=== PATIENT | female | born 2000 | race Caucasian/White ===

== ENCOUNTER 2018-08-21 18:36 | Emergency (ER) | payer OTHER ==
[~2018-08-21] VITALS: Ht 170.2 cm; Wt 74.8 kg
[~2018-08-21 18:36] MED LIST: ALBU90OI INH; AMOX50SU PO; CEPH250SUA PO; CLIN15SU PO; CODGUAEL PO; IBUP200 PO; MEBE100 PO; RXCODGUASY PO
[2018-08-21] MEDS ORDERED: KETO10 PO (19:17)
== END 2018-08-21 19:20 | disposition home or self-care (01) ==
LOC: ER 18:36
DX: M70.841 Other soft tissue disorders related to use, overuse and pressure, right hand (principal)
CPT/HCPCS: 99283

== ENCOUNTER → 2020-02-12 | Outpatient (CLI) | payer OTHER ==
[~2020-02-12] MED LIST changes: +Cipro500 MG PO; +ESCI10 PO; +KETO10 PO
== END | disposition home or self-care (01) ==
LOC: LAB SHORT 14:18 → LAB 14:18
PROVIDERS: Obstetrics & Gynecology
DX: Z01.419 Encounter for gynecological examination (general) (routine) without abnormal findings (principal)
CPT/HCPCS: G0123

== ENCOUNTER → 2020-05-30 | Outpatient (CLI) | payer OTHER ==
[2020-06-02 02:11] LABS: CHLAMYDIA TRACHOMATIS, NAA Negative (Negative)
== END | disposition home or self-care (01) ==
LOC: LAB EV 13:55
PROVIDERS: Obstetrics & Gynecology
DX: Z11.3 Encounter for screening for infections with a predominantly sexual mode of transmission (principal)
CPT/HCPCS: 87491; 87591

== ENCOUNTER → 2020-06-19 | Outpatient (CLI) | payer OTHER ==
[2020-06-19 13:50] LABS: BASOPHILS ABSOLUTE AUTO 0.06 K/mm3 (0.00-0.23); BASOPHILS PERCENT AUTO 1 % (0-2); EOSINOPHILS ABSOLUTE AUTO 0.12 K/mm3 (0.00-0.68); EOSINOPHILS PERCENT AUTO 2 % (0-6); Hematocrit 36.6 % (33.0-51.0); Hemoglobin 12.2 g/dL (11.5-16.0); IMMATURE GRAN ABSOLUTE AUTO 0.03 K/mm3 (0.00-0.10); IMMATURE GRAN PERCENT AUTO 0 % (0-1); LYMPHOCYTES ABSOLUTE AUTO 1.98 K/mm3 (0.84-5.20); LYMPHOCYTES PERCENT AUTO 30 % (21-46); MONOCYTES ABSOLUTE AUTO 0.35 K/mm3 (0.16-1.47); MONOCYTES PERCENT AUTO 5 % (4-13); Mean Corpuscular HGB 29.2 pg (26.0-34.0); Mean Corpuscular HGB Conc 33.3 g/dL (31.5-36.5); Mean Corpuscular Volume 88 fL (80-100); Mean Platelet Volume 9.2 fL (9.1-12.4); NEUTROPHILS ABSOLUTE AUTO 4.14 K/mm3 (1.96-9.15); NEUTROPHILS PERCENT AUTO 62 % (41-73); Platelet Count 343 K/mm3 (150-400); RDW Coefficient Variation 12.5 % (11.7-14.2); Red Blood Cell Count 4.18 M/mm3 (3.80-5.20); White Blood Cell Count 6.68 K/mm3 (4.00-11.30)
[2020-06-19 14:08] LABS: Alanine Aminotransfer (ALT/SGP 25 U/L (12-78); Albumin, Blood 3.3 g/dL (3.4-5.0); Albumin/Globulin Ratio 0.9 (0.8-1.8); Alk Phos 53 U/L (40-126); Anion Gap 11 mmol/L (6-16); Aspartate Aminotrans (AST/SGOT 17 U/L (12-37); Bilirubin, Total 0.4 mg/dL (0.1-1.0); Blood Urea Nitrogen 8 mg/dL (8-24); Bun/Creatinine Ratio 13.8 (12.0-20.0); CO2, Blood 24 mmol/L (21-32); Calcium, Blood 8.6 mg/dL (8.5-10.1); Chloride, Blood 105 mmol/L (98-108); Creatinine, Blood 0.58 mg/dL (0.40-1.00); Globulin, Blood 3.8 g/dL (2.2-4.0); Glomerular Filtration Rate >60 (60-); Glucose, Blood 80 mg/dL (70-99); Potassium, Blood 3.7 mmol/L (3.5-5.5); Sodium, Blood 140 mmol/L (136-145); Thyroid Stimulating Hormone 2.257 uIU/mL (0.360-4.800); Total Protein, Blood 7.1 g/dL (6.4-8.2)
== END | disposition home or self-care (01) ==
LOC: LAB SHORT 13:40
PROVIDERS: Physician Assistant Medical
DX: R55 Syncope and collapse (principal)
CPT/HCPCS: 80053; 84443; 85025

== ENCOUNTER → 2022-11-12 | Outpatient (CLI) | payer OTHER | END | disposition home or self-care (01) | LOC: LAB SHORT 16:36 → LAB 16:36 | PROVIDERS: Family Medicine | DX: Z01.419 Encounter for gynecological examination (general) (routine) without abnormal findings (principal) | CPT/HCPCS: G0145 ==

== ENCOUNTER 2024-02-11 23:27 | Emergency (ER) | payer OTHER ==
[~2024-02-11] VITALS: Ht 167.6 cm; Wt 77.1 kg
[2024-02-11 23:32] VITALS: BP 129/76
[2024-02-11] MEDS ORDERED: FOLI1 PO (23:37)
[2024-02-11] MEDS ORDERED: PRENATAL TABLE1 EAC2 PO (23:38)
[2024-02-11 23:59] LABS: BASOPHILS ABSOLUTE AUTO 0.05 K/mm3 (0.00-0.23); BASOPHILS PERCENT AUTO 1 % (0-2); EOSINOPHILS ABSOLUTE AUTO 0.31 K/mm3 (0.00-0.68); EOSINOPHILS PERCENT AUTO 3 % (0-6); Hematocrit 35.7 % (33.0-51.0); Hemoglobin 11.8 g/dL (11.5-16.0); IMMATURE GRAN ABSOLUTE AUTO 0.02 K/mm3 (0.00-0.10); IMMATURE GRAN PERCENT AUTO 0 % (0-1); LYMPHOCYTES PERCENT AUTO 35 % (21-46); MONOCYTES ABSOLUTE AUTO 0.63 K/mm3 (0.16-1.47); MONOCYTES PERCENT AUTO 7 % (4-13); Mean Corpuscular HGB 28.7 pg (26.0-34.0); Mean Corpuscular HGB Conc 33.1 g/dL (31.5-36.5); Mean Corpuscular Volume 87 fL (80-100); NEUTROPHILS ABSOLUTE AUTO 5.05 K/mm3 (1.96-9.15); NEUTROPHILS PERCENT AUTO 55 % (41-73); Platelet Count 325 K/mm3 (150-400); RDW Coefficient Variation 13.6 % (11.7-14.2); RDW Standard Deviation 43.2 fL (35.1-46.3); Red Blood Cell Count 4.11 M/mm3 (3.80-5.20); White Blood Cell Count 9.26 K/mm3 (4.00-11.30)
[2024-02-12 00:34] LABS: Albumin, Blood 3.4 g/dL (3.4-5.0); Bilirubin, Total 0.2 mg/dL (0.1-1.0); Bun/Creatinine Ratio 10.8 (12.0-20.0); Calcium, Blood 8.6 mg/dL (8.5-10.1); Creatinine, Blood 0.65 mg/dL (0.40-1.00); Globulin, Blood 3.4 g/dL (2.2-4.0); Potassium, Blood 3.7 mmol/L (3.5-5.5); Total Protein, Blood 6.8 g/dL (6.4-8.2)
[2024-02-12] MEDS ORDERED: Rho(D) Immune Globulin 300 MCG / SYR XX ONE (05:15)
[2024-02-12 06:13] LABS: Appearance, Urine Clear (Clear); Color, Urine Yellow (P-Yellow); Glucose Qualitative, Urine Neg (Neg); Ketones, Urine Neg (Neg); Leukocyte Esterase, Urine Neg (Neg); Nitrite, Urine Neg (Neg); Protein, Urine Neg (Neg); Source, Urine Clean Catch; pH, Urine 6.5 (5.0-8.0)
[2024-02-12 06:14] LABS: Bilirubin, Urine Neg (Neg); Blood, Urine 5+ (Neg); Red Blood Cells, Urine 0-2 /hpf (0-2); Urobilinogen, Urine 1+ (Normal); White Blood Cells, Urine 0-2 /hpf (0-5)
[2024-02-12 06:15] LABS: Bacteria Few /hpf; Squamous Epithelial Cells Few /hpf (Few)
== END 2024-02-12 02:09 | disposition home or self-care (01) ==
LOC: ER 23:27
PROVIDERS: Emergency Medicine
DX: O20.9 Hemorrhage in early pregnancy, unspecified (principal); Z3A.08 8 weeks gestation of pregnancy
CPT/HCPCS: 76801; 76817; 80053; 81001; 84702; 85025; 86900; 86901; 96372; 99284-25; J2791

== ENCOUNTER → 2024-08-25 | Outpatient (CLI) | payer OTHER ==
[~2024-08-25] MED LIST changes: +FOLI1 PO; +PRENATAL TABLE1 EAC2 PO
== END ==
LOC: LAB 16:48 → LAB SHORT 16:48
DX: O09.93 Supervision of high risk pregnancy, unspecified, third trimester (principal)
CPT/HCPCS: 87081; 87150

== ENCOUNTER 2024-09-22 18:16 | Inpatient (IN) | payer OTHER ==
[~2024-09-22] VITALS: Ht 167.6 cm; Wt 102.0 kg
[~2024-09-22 18:16] MED LIST changes: +EPINEPhrine HCl 0.1 MG/ML 10ML SYR XX ONE; +Propofol 10mg/ml 20 ml Vial (Procedural) IV ONE; +SuccINYLCHOLINE Chloride 100 MG/5 ML 5MLSYR IV ONE
[2024-09-22 18:22] VITALS: BP 152/82
[2024-09-22 18:39] VITALS: BP 146/94
[2024-09-22 19:16] VITALS: BP 128/61
[2024-09-22 19:35] LABS: BASOPHILS ABSOLUTE AUTO 0.04 K/mm3 (0.00-0.23); BASOPHILS PERCENT AUTO 0 % (0-2); EOSINOPHILS ABSOLUTE AUTO 0.14 K/mm3 (0.00-0.68); EOSINOPHILS PERCENT AUTO 1 % (0-6); Hematocrit 36.1 % (33.0-51.0); Hemoglobin 12.1 g/dL (11.5-16.0); IMMATURE GRAN ABSOLUTE AUTO 0.06 K/mm3 (0.00-0.10); IMMATURE GRAN PERCENT AUTO 1 % (0-1); LYMPHOCYTES PERCENT AUTO 19 % (21-46); MONOCYTES ABSOLUTE AUTO 0.73 K/mm3 (0.16-1.47); MONOCYTES PERCENT AUTO 6 % (4-13); Mean Corpuscular HGB 29.5 pg (26.0-34.0); Mean Corpuscular HGB Conc 33.5 g/dL (31.5-36.5); Mean Corpuscular Volume 88 fL (80-100); NEUTROPHILS ABSOLUTE AUTO 8.72 K/mm3 (1.96-9.15); NEUTROPHILS PERCENT AUTO 73 % (41-73); Platelet Count 266 K/mm3 (150-400); RDW Coefficient Variation 13.7 % (11.7-14.2); RDW Standard Deviation 44.2 fL (35.1-46.3); White Blood Cell Count 11.99 K/mm3 (4.00-11.30)
[2024-09-22] MEDS ORDERED: Lactated Ringer's 1,000 ML IV ONE (19:35)
[2024-09-22 19:48] VITALS: BP 134/71
[2024-09-22] MEDS ORDERED: Carboprost Tromethamine 250 MCG/ML 1ML Amp IM ONE (20:21)
[2024-09-22] MEDS ORDERED: Methylergonovine Maleate 0.2MG / ML 1ML Amp XX ONE (20:21)
[2024-09-22] MEDS ORDERED: Misoprostol 200 MCG Tab PO ONE (20:21)
[2024-09-22] MEDS ORDERED: Morphine Sulfate 10 MG/ML 1MLSYR IM ONE (21:05)
[2024-09-22] MEDS ORDERED: Promethazine HCl 25 MG Tab PO ONE (21:05)
[2024-09-23] VITALS (42 sets, daily range): BP systolic 118–159; BP diastolic 63–105
[2024-09-23] MEDS ORDERED: LEVSOD75 PO (05:39)
[2024-09-23] MEDS ORDERED: Ondansetron HCl 2 MG / ML 2ML Vial IV PRN ×3 (05:45→20:20)
[2024-09-23] MEDS ORDERED: OXYTOCIN/RINGER'S LACTATE 500 ML IV PRN (05:45)
[2024-09-23] MEDS ORDERED: ePHEDrine Sulfate 50 MG/ML 1ML Injection XX PRN (05:45)
[2024-09-23] MEDS ORDERED: Tranexamic Acid 1,000 MG in NS 100 ML IV SCH (05:45)
[2024-09-23] MEDS ORDERED: Lactated Ringer's 1,000 ML IV PRN ×3 (05:45→05:50)
[2024-09-23] MEDS ORDERED: Misoprostol 200 MCG Tab PR PRN ×2 (05:45→20:25)
[2024-09-23] MEDS ORDERED: Misoprostol 200 MCG Tab BC PRN (05:45)
[2024-09-23] MEDS ORDERED: Oxytocin 10 Unit / ML Vial IM PRN (05:45)
[2024-09-23] MEDS ORDERED: FentaNYL 2mcg/ml-Bup 0.1% Epd 250 ML EPI PRN (05:45)
[2024-09-23] MEDS ORDERED: Acetaminophen 500 MG Tab PO PRN ×2 (05:45→20:20)
[2024-09-23] MEDS ORDERED: Carboprost Tromethamine 250 MCG/ML 1ML Amp IM PRN ×2 (05:45→20:20)
[2024-09-23] MEDS ORDERED: Methylergonovine Maleate 0.2MG / ML 1ML Amp IM PRN ×2 (05:45→20:25)
[2024-09-23] MEDS ORDERED: FentaNYL Citrate 50 MCG/ML 2 ML Injection IV PRN ×3 (05:50→20:05)
[2024-09-23] MEDS ORDERED: Calcium Carbonate 500 MG Tab Chew PO PRN (05:50)
[2024-09-23] MEDS ORDERED: Penicillin G Potassium 5,000,000 UNITS in NS 250 ML IV ONE (06:00)
[2024-09-23] MEDS ORDERED: Penicillin G Potassium 2,500,000 UNITS in Dextrose 5% 100 ML IV SCH (10:15)
[2024-09-23] MEDS ORDERED: Lactated Ringer's 1,000 ML IV SCH (14:20)
[2024-09-23] MEDS ORDERED: OXYTOCIN/RINGER'S LACTATE 500 ML IV SCH ×2 (14:20→20:30)
[2024-09-23] MEDS ORDERED: ePHEDrine Sulfate 50 MG/ML 1ML Injection IV PRN (16:05)
[2024-09-23] MEDS ORDERED: Naloxone HCl 0.4MG / ML 1ML Vial IV PRN (16:05)
[2024-09-23] MEDS ORDERED: FentaNYL Cit 2 MCG/ML, 0.1% Bupiv/NS 250ML Epidural EPI PRN (16:10)
[2024-09-23] MEDS ORDERED: CeFAZolin Sodium 2,000 MG in NS 100 ML IV SCH (18:25)
[2024-09-23] MEDS ORDERED: Azithromycin 500 MG in NS 250 ML IV SCH (18:25)
[2024-09-23] MEDS ORDERED: Metoclopramide HCl 5MG / ML 2ML Vial ONE (18:38)
[2024-09-23] MEDS ORDERED: Citric Acid/Sodium Citrate 30 ML BTL ONE (18:39)
[2024-09-23] MEDS ORDERED: Metoclopramide HCl 5MG / ML 2ML Vial IV ONE (18:40)
[2024-09-23] MEDS ORDERED: Citric Acid/Sodium Citrate 30 ML BTL PO ONE (18:40)
[2024-09-23] MEDS ORDERED: Tranexamic Acid 100 ML IV ONE (18:47)
[2024-09-23] MEDS ORDERED: FentaNYL Citrate 50 MCG/ML 2 ML Injection ONE ×2 (19:08→20:01)
[2024-09-23] MEDS ORDERED: Carboprost Tromethamine 250 MCG/ML 1ML Amp IM SCH (19:15)
[2024-09-23] MEDS ORDERED: Methylergonovine Maleate 0.2MG / ML 1ML Amp IM SCH (19:15)
--- NOTE | 2024-09-23 19:15 | NUR ---
RESUSCITATION ATTEMPT: DISPITED THE CONFIRMATION OF NO CARDIAC ACTIVITY VIA US. THE PATIENT AND FAMILY REQUESTED ALL LIFE SAVING MEASURES BE DONE. RESUSCITACTION ATTEMPT FOLLOWS: AT 1902. NO HEART RATE AT DELIVERY. NB WAS PROMT[facility] AVILA WERE WAITING TO RECEIVE. PPV DONE FOR 30SECONDS. NB INTUBATED AT 190, BILATERAL LUNG SOUNDS. CHEST COMPRESSION STARTED AFTER 30 SECOND OF VENTALATION VIA ET TUBE. IO TO RT WOO PLACED AT 190- 2CC OF EPI GIVEN VIA THIS IO. EXTAVASATION NOTED WITH FLUSH. CONTINUING TO WORK FOR UV ACCESS. SECOND IO PLACED IN LEFT WOO AT 190 AND 1CC EPI GIVEN, AGAIN EXTAVASTION NOTED WITH FLUSH. 1913 UV LINE SUCCESSFULLY PLACED AND 1CC EPI GIVEN FOLLOWED BY 3CC FLUSH. NO HEART RATE AT 13 MINUTES AFTER DELIVERY AND TIME OF CALLED AT 191.
[2024-09-23] MEDS ORDERED: Oxytocin 10 Unit / ML Vial ONE (19:20)
[2024-09-23] MEDS ORDERED: Dexamethasone Sod Phos 10 MG/ML 1ML VIAL ONE (19:25)
[2024-09-23] MEDS ORDERED: Ondansetron HCl 2 MG / ML 2ML Vial ONE (19:25)
--- NOTE | 2024-09-23 19:35 | NUR ---
09/23/241934 [facility]ARE[facility] SECTION. FOR ABSENT HEART TONES. FEMALE DELIVERED AT 190. APGARS 0/0. 13 MINUTE FULL RESUSCITATION DONE BY DR. AUSTIN DOMINGUEZ, SANCHEZ FINNEY, KAITLYNN., MARIEL AMAYA, RN, JAMEE SPENCER, RN, ROBE HERNANDEZ, RN, DEVANG, RN. RENO CORDOBA, RT. TIME OF FOR WAS CALLED AT 191. PT RECEIVED IM METHERGINE, IM HEMABATE, AND TXA IN OR DURING CASE.
[2024-09-23 19:42] LABS: PCO2 Cord - Arterial 84.4 mmHg (40-50); pH Cord - Arterial 6.88 (7.28-7.35)
[2024-09-23 19:43] LABS: PCO2 Cord - Venous 42.9 mmHg (40-50); PO2 Cord - Venous 51.4 mmHg (28-32); pH Umbilical Cord - Venous 7.04 (7.26-7.35)
[2024-09-23] MEDS ORDERED: FentaNYL Citrate 50 MCG/ML 2 ML Injection IV ONE (20:05)
[2024-09-23] MEDS ORDERED: HYDROmorphone HCl/Pf 1MG SYR IV PRN (20:05)
[2024-09-23] MEDS ORDERED: Ketorolac Tromethamine 15mg Vial IV PRN (20:10)
[2024-09-23] MEDS ORDERED: OxyCODONE HCL 5 MG TAB PO PRN (20:15)
[2024-09-23] MEDS ORDERED: DiphenhydrAMINE HCL 25 MG Cap PO PRN (20:15)
[2024-09-23] MEDS ORDERED: Polyethylene Glycol 3350 17 gm PO PRN (20:20)
[2024-09-23] MEDS ORDERED: Promethazine HCl 25 MG Tab PO PRN (20:20)
[2024-09-23] MEDS ORDERED: Magnesium Hydroxide Conc 10 ML UDC PO PRN (20:25)
[2024-09-23] MEDS ORDERED: Simethicone 80 MG Chew PO PRN (20:25)
[2024-09-23] MEDS ORDERED: Rho(D) Immune Globulin 300 MCG / SYR IM ONE (20:25)
[2024-09-23] MEDS ORDERED: HYDROmorphone 1 MG/ML 30 ML Bag IV PRN (20:30)
[2024-09-23] MEDS ORDERED: Metoclopramide HCl 10 MG Tab PO PRN (20:40)
[2024-09-23] MEDS ORDERED: Ketorolac Tromethamine 30mg Vial IV SCH (21:00)
[2024-09-23] MEDS ORDERED: Docusate Sodium 100 MG Cap PO SCH (21:00)
[2024-09-23 21:16] LABS: Hematocrit 32.5 % (33.0-51.0); Hemoglobin 10.9 g/dL (11.5-16.0); Mean Corpuscular HGB 29.7 pg (26.0-34.0); Mean Corpuscular HGB Conc 33.5 g/dL (31.5-36.5); Mean Corpuscular Volume 89 fL (80-100); Mean Platelet Volume 8.9 fL (9.1-12.4); Platelet Count 271 K/mm3 (150-400); RDW Standard Deviation 45.4 fL (35.1-46.3); Red Blood Cell Count 3.67 M/mm3 (3.80-5.20); White Blood Cell Count 13.94 K/mm3 (4.00-11.30)
[2024-09-23 22:02] LABS: Prothrombin Time Results 10.7 Sec (9.7-11.5)
[2024-09-23 22:20] LABS: Hematocrit 31.7 % (33.0-51.0); Hemoglobin 10.6 g/dL (11.5-16.0); Mean Corpuscular HGB Conc 33.4 g/dL (31.5-36.5); Mean Corpuscular Volume 87 fL (80-100); Mean Platelet Volume 8.9 fL (9.1-12.4); Platelet Count 274 K/mm3 (150-400); RDW Coefficient Variation 13.9 % (11.7-14.2); RDW Standard Deviation 43.5 fL (35.1-46.3); Red Blood Cell Count 3.66 M/mm3 (3.80-5.20); White Blood Cell Count 16.82 K/mm3 (4.00-11.30)
[2024-09-23 22:38] LABS: International Normalized Ratio 0.99; Prothrombin Time Results 10.6 Sec (9.7-11.5)
[2024-09-23 22:55] LABS: BAND PERCENT MAN 26 % (0-8); BASOPHILS PERCENT MAN 0 % (0-2); EOSINOPHILS PERCENT MAN 0 % (0-6); LYMPHOCYTES PERCENT MAN 6 % (21-46); MONOCYTES PERCENT MAN 3 % (4-13); SEG NEUTROPHILS PERCENT MAN 65 % (41-73); TOTAL CELLS COUNTED 100
[2024-09-24] VITALS (23 sets, daily range): BP systolic 106–154; BP diastolic 54–91
[2024-09-24] MEDS ORDERED: NS IV ONE (03:15)
[2024-09-24] MEDS ORDERED: GENTAMICIN SULFATE IV ONE (03:15)
[2024-09-24] MEDS ORDERED: Clindamycin 900mg in D5W 50ML 50 ML IV SCH (03:15)
[2024-09-24 03:42] LABS: Hematocrit 27.5 % (33.0-51.0); Hemoglobin 9.3 g/dL (11.5-16.0); Mean Corpuscular HGB 29.8 pg (26.0-34.0); Mean Corpuscular HGB Conc 33.8 g/dL (31.5-36.5); Mean Corpuscular Volume 88 fL (80-100); Mean Platelet Volume 9.3 fL (9.1-12.4); Platelet Count 271 K/mm3 (150-400); RDW Standard Deviation 44.8 fL (35.1-46.3); Red Blood Cell Count 3.12 M/mm3 (3.80-5.20); White Blood Cell Count 18.31 K/mm3 (4.00-11.30)
[2024-09-24 03:52] LABS: International Normalized Ratio 1.02; Prothrombin Time Results 10.9 Sec (9.7-11.5)
[2024-09-24 03:56] LABS: BAND PERCENT MAN 23 % (0-8); BASOPHILS PERCENT MAN 0 % (0-2); EOSINOPHILS PERCENT MAN 0 % (0-6); LYMPHOCYTES ABSOLUTE MAN 2.56 K/mm3 (0.84-5.20); LYMPHOCYTES PERCENT MAN 14 % (21-46); MONOCYTES ABSOLUTE MAN 1.09 K/mm3 (0.16-1.47); MONOCYTES PERCENT MAN 6 % (4-13); NEUTROPHILS ABSOLUTE MAN 14.64 K/mm3 (1.96-9.15); SEG NEUTROPHILS PERCENT MAN 57 % (41-73); TOTAL CELLS COUNTED 100
[2024-09-24] MEDS ORDERED: Levothyroxine Sodium 0.075 MG Tab PO SCH (06:00)
[2024-09-24] MEDS ORDERED: Citalopram Hydrobromide 20 MG Tab PO SCH (09:00)
[2024-09-24] MEDS ORDERED: Prenatal Vit/FE Fumarate/FA 1 Tab PO SCH ×2 (09:00)
[2024-09-24] MEDS ORDERED: Folic Acid 1 MG TAB PO SCH (09:00)
[2024-09-24] MEDS ORDERED: Rho(D) Immune Globulin 300 MCG / SYR IM SCH (10:20)
--- NOTE | 2024-09-24 11:44 | NUR ---
SENIOR STOCK PLAN ADMINISTRATOR D/C AND BIOX REMOVED WASTE 18CC OF DILAUDID WITH ELISA CALDERÓN
--- NOTE | 2024-09-24 13:34 | NUR ---
PATIENT REFUSED SPIRITUAL CARE AT THIS TIME, [facility] HAS BEEN TALKED TO BY FAMILY. PLAN TO DO AUTOPSY THEN BABY TO [facility]
--- NOTE | 2024-09-24 17:24 | NUR ---
UP TO BATHROOM, VOIDED
[2024-09-24] MEDS ORDERED: Ibuprofen 400 MG Tab PO SCH (18:00)
[2024-09-24 20:39] LABS: Hematocrit 26.7 % (33.0-51.0); Hemoglobin 8.7 g/dL (11.5-16.0); Mean Corpuscular HGB 29.3 pg (26.0-34.0); Mean Corpuscular HGB Conc 32.6 g/dL (31.5-36.5); Mean Corpuscular Volume 90 fL (80-100); Mean Platelet Volume 8.9 fL (9.1-12.4); Platelet Count 269 K/mm3 (150-400); RDW Coefficient Variation 13.9 % (11.7-14.2); RDW Standard Deviation 45.9 fL (35.1-46.3); Red Blood Cell Count 2.97 M/mm3 (3.80-5.20); White Blood Cell Count 14.26 K/mm3 (4.00-11.30)
[2024-09-24] MEDS ORDERED: Zolpidem Tartrate 10 MG Tab PO PRN (20:45)
[2024-09-24 20:52] LABS: International Normalized Ratio 0.97; Prothrombin Time Results 10.4 Sec (9.7-11.5)
[2024-09-24 21:27] LABS: BAND PERCENT MAN 23 % (0-8); BASOPHILS PERCENT MAN 0 % (0-2); EOSINOPHILS ABSOLUTE MAN 0.14 K/mm3 (0.00-0.68); EOSINOPHILS PERCENT MAN 1 % (0-6); LYMPHOCYTES ABSOLUTE MAN 2.13 K/mm3 (0.84-5.20); LYMPHOCYTES PERCENT MAN 15 % (21-46); MONOCYTES ABSOLUTE MAN 0.42 K/mm3 (0.16-1.47); MONOCYTES PERCENT MAN 3 % (4-13); NEUTROPHILS ABSOLUTE MAN 11.55 K/mm3 (1.96-9.15); SEG NEUTROPHILS PERCENT MAN 58 % (41-73); TOTAL CELLS COUNTED 100
[2024-09-25 04:50] VITALS: BP 134/81
--- NOTE | 2024-09-25 06:01 | NUR ---
SHIFT SUMMARY: PT AND SIGNIFICANT OTHER KEPT BABY AT BEDSIDE UNTILL ABOUT MIDNIGHT WHEN THEY REQUESTED THAT BABY GO TO PATHOLOGY. BABY WAS TAKEN TO PATHO BY THIS RN WITH AUTOPSY CONSENT AND REPORT. SOME PERSONAL BELONGINGS ALSO SENT WITH BABY. BLANKET, OUTFIT, A FLOWER AND A TOY TO GO WITH BABY TO THE HOME. MOTHER HAS HAD A COUPLE EPISODES OF VOMITTING THAT WAS RELIEVED BY [facility]AN. PT HAS BEEN AMBULATING IN ROOM AND IS NOW PASSING GAS. VOIDING WITHOUT DIFFICULTY.
--- NOTE | 2024-09-25 07:44 | NUR ---
pt has some nausea, gets the nausea after taking roxicodone, will talk to dr javier when she makes rounds this morning about trying a differnt pain medication, pt would like to go home today if the nausea gets better.
--- NOTE | 2024-09-25 08:44 | NUR ---
pt sleeping, have morning meds ready to give and do assessment, will let pt sleep a little longer.
--- NOTE | 2024-09-25 09:00 | NUR ---
dr romero at bedside for morning rounds, discussing pain meds with pt, to switch to hydrocodone, to give clindamycin and gentamycin, and possible dc home if nausea better today
[2024-09-25] MEDS ORDERED: GENTAMICIN SULFATE IV ONE (09:05)
[2024-09-25] MEDS ORDERED: NS IV ONE (09:05)
[2024-09-25] MEDS ORDERED: HYDROcodone 5-APAP 325 TAB PO PRN (09:15)
[2024-09-25 09:40] LABS: BASOPHILS ABSOLUTE AUTO 0.07 K/mm3 (0.00-0.23); BASOPHILS PERCENT AUTO 0 % (0-2); Hematocrit 26.5 % (33.0-51.0); Hemoglobin 9.2 g/dL (11.5-16.0); LYMPHOCYTES ABSOLUTE AUTO 2.36 K/mm3 (0.84-5.20); LYMPHOCYTES PERCENT AUTO 13 % (21-46); MONOCYTES PERCENT AUTO 4 % (4-13); Mean Corpuscular HGB 30.5 pg (26.0-34.0); Mean Corpuscular HGB Conc 34.7 g/dL (31.5-36.5); Mean Corpuscular Volume 88 fL (80-100); Mean Platelet Volume 8.9 fL (9.1-12.4); Platelet Count 302 K/mm3 (150-400); RDW Standard Deviation 44.8 fL (35.1-46.3); Red Blood Cell Count 3.02 M/mm3 (3.80-5.20); White Blood Cell Count 18.06 K/mm3 (4.00-11.30)
[2024-09-25 09:45] VITALS: BP 141/85
[2024-09-25 09:45] LABS: EOSINOPHILS ABSOLUTE AUTO 0.07 K/mm3 (0.00-0.68); EOSINOPHILS PERCENT AUTO 0 % (0-6); IMMATURE GRAN ABSOLUTE AUTO 0.29 K/mm3 (0.00-0.10); IMMATURE GRAN PERCENT AUTO 2 % (0-1); NEUTROPHILS ABSOLUTE AUTO 14.47 K/mm3 (1.96-9.15); NEUTROPHILS PERCENT AUTO 80 % (41-73)
[2024-09-25 10:12] LABS: BAND PERCENT MAN 3 % (0-8); BASOPHILS ABSOLUTE MAN 0.18 K/mm3 (0.00-0.23); BASOPHILS PERCENT MAN 1 % (0-2); EOSINOPHILS ABSOLUTE MAN 0.18 K/mm3 (0.00-0.68); EOSINOPHILS PERCENT MAN 1 % (0-6); LYMPHOCYTES ABSOLUTE MAN 1.62 K/mm3 (0.84-5.20); LYMPHOCYTES PERCENT MAN 9 % (21-46); MONOCYTES ABSOLUTE MAN 1.08 K/mm3 (0.16-1.47); MONOCYTES PERCENT MAN 6 % (4-13); NEUTROPHILS ABSOLUTE MAN 14.98 K/mm3 (1.96-9.15); SEG NEUTROPHILS PERCENT MAN 80 % (41-73); TOTAL CELLS COUNTED 100
--- NOTE | 2024-09-25 10:38 | NUR ---
pt feels the hydrocodone is better than the roxicodone for nausea, would still like to go home today. gentamicin is running in now. cbc results are back, pt reports the hydrocodone is making her a little sleepy
--- NOTE | 2024-09-25 11:03 | NUR ---
ELISA FROM [facility] IN TO SEE PT, TO CLEAR PT FOR GOING HOME, PPD SCORE HASNT BEEN DONE, EXPECTING IT TO BE HIGH. PT STILL WANTS TO GO HOME, NAUSEA IS BETTER WITH THE HYDROCODONE.
--- NOTE | 2024-09-25 11:50 | NUR ---
pt walk in grey outside administration to avoid any contact with people or babies.
--- NOTE | 2024-09-25 13:00 | NUR ---
dr romero called for update, sending new medications to pharamcy of pt choice with that is listed with [facility] and ok to go home after last antibotic pt wants to go home, less nausea with the hydrocodone, pt just feels sleepy. pt doesnt talk about baby or experience, but does focus on her surgery pain and nausea. social service talked to patient and
--- NOTE | 2024-09-25 13:50 | NUR ---
rn up to pathology to get baby blanket and cloths from baby for parents per their request, to leave flower and baby doll with baby to go to [place]. chelly made arrangement with [place] for the parents and parents agree with going to [place].
[2024-09-25] MEDS ORDERED: HYDROCODONE-AC1 EA19 PO (14:13)
[2024-09-25] MEDS ORDERED: IBUP800 PO (14:13)
[2024-09-25] MEDS ORDERED: METO10 PO (14:14)
[2024-09-25] MEDS ORDERED: ONDA4ODT MM (14:14)
--- NOTE | 2024-09-25 14:59 | NUR ---
DC INSTRUCTIONS GONE OVER WITH PATIENT AND FAMILY, VERBALIZE UNDERSTANDING, PT HAS [facility] APPT ON Saturday- AT 1615, AND AN APPOINTMENT WED WITH DR MARIE, PT VERBALIZED BOTH OF THESE APPOINEMENTS, ENCOURAGED TO CALL [facility] OR DR MARIE WITH QUESTIONS,
--- NOTE | 2024-09-25 15:05 | NUR ---
DC HOME, AMBULATED OUT THE BACK ADMINISTRATION DOOR TO AVOID PEOPLE AND BABIES, PT DOESNT TALK ABOUT BABY, ONLY FOCUSING ON HER SURGERY PAIN AND NAUSEA GETTING BETTER, ENCOURAGED FOR HER TO MESSAGE [facility] AND CALL [facility] IF NEEDS ANYTHING
== END 2024-09-25 15:05 | disposition home or self-care (01) | DRG 787 ==
LOC: OBS 18:16 → BC 18:18 → OBS 21:01 → BC 21:04
PROVIDERS: Advanced Practice Midwife; Obstetrics & Gynecology; ADMIT Obstetrics & Gynecology
PROC: 10907ZC Drainage of Amniotic Fluid, Therapeutic from Products of Conception, Via Natural or Artificial Opening (ICD-10-PCS; 2024-09-23)
PROC: 4A1H7CZ Monitoring of Products of Conception, Cardiac Rate, Via Natural or Artificial Opening (ICD-10-PCS; 2024-09-23)
PROC: 10H073Z Insertion of Monitoring Electrode into Products of Conception, Via Natural or Artificial Opening (ICD-10-PCS; 2024-09-23)
PROC: 4A1HXCZ Monitoring of Products of Conception, Cardiac Rate, External Approach (ICD-10-PCS; 2024-09-23)
PROC: BY4FZZZ Ultrasonography of Third Trimester, Single Fetus (ICD-10-PCS; 2024-09-23)
PROC: 10D00Z1 Extraction of Products of Conception, Low, Open Approach (ICD-10-PCS; principal; 2024-09-23 18:00)
DX: O48.0 Post-term pregnancy (principal); D62 Acute posthemorrhagic anemia; O36.4XX0 Maternal care for intrauterine death, not applicable or unspecified; Z3A.40 40 weeks gestation of pregnancy; O99.824 Streptococcus B carrier state complicating childbirth; O99.284 Endocrine, nutritional and metabolic diseases complicating childbirth; E03.9 Hypothyroidism, unspecified; O99.344 Other mental disorders complicating childbirth; F41.8 Other specified anxiety disorders; O26.893 Other specified pregnancy related conditions, third trimester; O77.0 Labor and delivery complicated by meconium in amniotic fluid; O63.0 Prolonged first stage (of labor); O76 Abnormality in fetal heart rate and rhythm complicating labor and delivery; O99.02 Anemia complicating childbirth; O99.03 Anemia complicating the puerperium; Z79.890 Hormone replacement therapy; Z67.11 Type A blood, Rh negative; Z37.1 Single stillbirth
CPT/HCPCS: 31500; 36415; 51702; 59025; 76815; 82803; 85025; 85027; 85384; 85460; 85610; 85730; 86850; 86900; 86901; 86923; 92950; 94002; 96372; 96374; 96375; 96376; 99214; A9270; G0378; J0330; J0690; J1100; J1171; J1580; J1720; J1885; J2210; J2270; J2405; J2540; J2590; J2704; J2791; J3010; J7050; J7120

== ENCOUNTER 2024-10-02 12:15 | Emergency (ER) | payer OTHER ==
[~2024-10-02] VITALS: Ht 167.6 cm; Wt 88.5 kg
[~2024-10-02 12:15] MED LIST changes: -EPINEPhrine HCl 0.1 MG/ML 10ML SYR XX ONE; +HYDROCODONE-AC1 EA19 PO; +IBUP800 PO; +LEVSOD75 PO; +METO10 PO; +ONDA4ODT MM; -Propofol 10mg/ml 20 ml Vial (Procedural) IV ONE; -SuccINYLCHOLINE Chloride 100 MG/5 ML 5MLSYR IV ONE
[2024-10-02] MEDS ORDERED: NS 1,000 ML IV SCH ×2 (12:30→14:25)
[2024-10-02 13:12] LABS: Source, Urine Clean Catch
[2024-10-02 13:14] LABS: Appearance, Urine Clear (Clear); Bilirubin, Urine Neg (Neg); Blood, Urine 5+ (Neg); Color, Urine Yellow (P-Yellow); Glucose Qualitative, Urine Neg (Neg); Ketones, Urine 2+ (Neg); Leukocyte Esterase, Urine 2+ (Neg); Nitrite, Urine Neg (Neg); Protein, Urine 2+ (Neg); Specific Gravity, Urine 1.015 (1.003-1.022); Urobilinogen, Urine NORM (Normal)
[2024-10-02 13:23] LABS: Bacteria Mod /hpf; Mucus Light (0-Heavy); Squamous Epithelial Cells Few /hpf (Few); Transitional Epithelial Cells Few /hpf (0-Rare)
[2024-10-02 14:02] LABS: BASOPHILS PERCENT AUTO 1 % (0-2); EOSINOPHILS ABSOLUTE AUTO 0.13 K/mm3 (0.00-0.68); EOSINOPHILS PERCENT AUTO 1 % (0-6); Hematocrit 28.9 % (33.0-51.0); Hemoglobin 9.4 g/dL (11.5-16.0); IMMATURE GRAN ABSOLUTE AUTO 0.92 K/mm3 (0.00-0.10); IMMATURE GRAN PERCENT AUTO 6 % (0-1); LYMPHOCYTES ABSOLUTE AUTO 2.46 K/mm3 (0.84-5.20); LYMPHOCYTES PERCENT AUTO 15 % (21-46); MONOCYTES ABSOLUTE AUTO 0.76 K/mm3 (0.16-1.47); MONOCYTES PERCENT AUTO 5 % (4-13); Mean Corpuscular HGB Conc 32.5 g/dL (31.5-36.5); Mean Corpuscular Volume 89 fL (80-100); Mean Platelet Volume 8.1 fL (9.1-12.4); NEUTROPHILS ABSOLUTE AUTO 12.45 K/mm3 (1.96-9.15); NEUTROPHILS PERCENT AUTO 74 % (41-73); NRBC ABSOLUTE 0.03 K/mm3 (0.00-0.02); NRBC Auto 0.2 /100 WBC (0.0-0.2); Platelet Count 594 K/mm3 (150-400); RDW Coefficient Variation 13.4 % (11.7-14.2); RDW Standard Deviation 43.5 fL (35.1-46.3); Red Blood Cell Count 3.24 M/mm3 (3.80-5.20); White Blood Cell Count 16.82 K/mm3 (4.00-11.30)
[2024-10-02 14:16] LABS: Albumin, Blood 2.7 g/dL (3.4-5.0); Albumin/Globulin Ratio 0.6 (0.8-1.8); Bilirubin, Total 0.3 mg/dL (0.1-1.0); Bun/Creatinine Ratio 16.7 (12.0-20.0); Calcium, Blood 9.1 mg/dL (8.5-10.1); Creatinine, Blood 0.6 mg/dL (0.40-1.00); Globulin, Blood 4.6 g/dL (2.2-4.0); Potassium, Blood 3.7 mmol/L (3.5-5.5); Total Protein, Blood 7.3 g/dL (6.4-8.2)
[2024-10-02 14:27] LABS: BASOPHILS PERCENT MAN 0 % (0-2); EOSINOPHILS ABSOLUTE MAN 0.16 K/mm3 (0.00-0.68); EOSINOPHILS PERCENT MAN 1 % (0-6); LYMPHOCYTES ABSOLUTE MAN 2.69 K/mm3 (0.84-5.20); LYMPHOCYTES PERCENT MAN 16 % (21-46); METAMYELOCYTE ABSOLUTE MAN 0.16 K/mm3 (0.00-0.00); METAMYELOCYTE PERCENT MAN 1 % (0-0); MONOCYTES PERCENT MAN 3 % (4-13); MYELOCYTE ABSOLUTE MAN 0.67 K/mm3 (0.00-0.00); MYELOCYTE PERCENT MAN 4 % (0-0); NEUTROPHILS ABSOLUTE MAN 12.61 K/mm3 (1.96-9.15); SEG NEUTROPHILS PERCENT MAN 75 % (41-73); TOTAL CELLS COUNTED 100
[2024-10-02 15:00] VITALS: BP 141/80
[2024-10-02] MEDS ORDERED: Phenergan25 M1 PO (15:06)
[2024-10-02] MEDS ORDERED: L-METHYLFOLATE15 MG PO (15:08)
== END 2024-10-02 16:00 | disposition home or self-care (01) ==
LOC: ER 12:15
PROVIDERS: Student in an Organized Health Care Education/Training Program
DX: G89.18 Other acute postprocedural pain (principal); R10.9 Unspecified abdominal pain; R11.2 Nausea with vomiting, unspecified; Z79.899 Other long term (current) drug therapy
CPT/HCPCS: 74177; 80053; 81001; 81025; 83690; 85025; 87077; 87086; 87147; 87186; 96360; 99284-25; J7030; Q9967

== ENCOUNTER → 2024-11-02 | Outpatient (CLI) | payer OTHER | LOC: LAB 15:59 → LAB SHORT 15:59 | DX: N76.0 Acute vaginitis (principal) ==

== ENCOUNTER → 2024-11-07 | Outpatient (CLI) | payer OTHER ==
[~2024-11-07] MED LIST changes: +L-METHYLFOLATE15 MG PO; +LEVOFLOXACIN250 M1 PO; +Phenergan25 M1 PO
== END ==
LOC: LAB SHORT 13:47 → LAB 13:47
DX: N39.0 Urinary tract infection, site not specified (principal)
CPT/HCPCS: 87086

== ENCOUNTER 2024-11-09 19:32 | Emergency (ER) | payer OTHER ==
[~2024-11-09] VITALS: Ht 167.6 cm; Wt 85.3 kg
[~2024-11-09 19:32] MED LIST changes: -LEVOFLOXACIN250 M1 PO
[2024-11-09 20:07] LABS: Source, Urine Clean Catch
[2024-11-09 20:12] LABS: BASOPHILS ABSOLUTE AUTO 0.06 K/mm3 (0.00-0.23); BASOPHILS PERCENT AUTO 1 % (0-2); EOSINOPHILS ABSOLUTE AUTO 0.07 K/mm3 (0.00-0.68); EOSINOPHILS PERCENT AUTO 1 % (0-6); Hematocrit 36.8 % (33.0-51.0); Hemoglobin 11.8 g/dL (11.5-16.0); IMMATURE GRAN ABSOLUTE AUTO 0.02 K/mm3 (0.00-0.10); IMMATURE GRAN PERCENT AUTO 0 % (0-1); LYMPHOCYTES ABSOLUTE AUTO 2.75 K/mm3 (0.84-5.20); LYMPHOCYTES PERCENT AUTO 28 % (21-46); MONOCYTES ABSOLUTE AUTO 0.56 K/mm3 (0.16-1.47); MONOCYTES PERCENT AUTO 6 % (4-13); Mean Corpuscular HGB Conc 32.1 g/dL (31.5-36.5); Mean Corpuscular Volume 84 fL (80-100); NEUTROPHILS PERCENT AUTO 65 % (41-73); Platelet Count 427 K/mm3 (150-400); RDW Coefficient Variation 15.1 % (11.7-14.2); RDW Standard Deviation 46.5 fL (35.1-46.3); Red Blood Cell Count 4.37 M/mm3 (3.80-5.20); White Blood Cell Count 9.96 K/mm3 (4.00-11.30)
[2024-11-09 20:12] LABS: Appearance, Urine Clear (Clear); Bilirubin, Urine Neg (Neg); Blood, Urine Neg (Neg); Color, Urine Yellow (P-Yellow); Glucose Qualitative, Urine Neg (Neg); Ketones, Urine 4+ (Neg); Leukocyte Esterase, Urine 1+ (Neg); Nitrite, Urine Neg (Neg); Protein, Urine 2+ (Neg); Specific Gravity, Urine 1.025 (1.003-1.022); Urobilinogen, Urine 1+ (Normal)
[2024-11-09 20:20] LABS: Bacteria Mod /hpf; Mucus Light (0-Heavy); Red Blood Cells, Urine 0-2 /hpf (0-2); Squamous Epithelial Cells Few /hpf (Few)
[2024-11-09 20:49] LABS: Alanine Aminotransfer (ALT/SGP 44 U/L (12-78); Albumin, Blood 3.9 g/dL (3.4-5.0); Albumin/Globulin Ratio 0.9 (0.8-1.8); Alk Phos 92 U/L (50-136); Anion Gap 13 mmol/L (3-11); Aspartate Aminotrans (AST/SGOT 30 U/L (12-37); Beta HCG, Quantitative, Serum <1 mIU/mL (0-3); Bilirubin, Total 0.4 mg/dL (0.1-1.0); Blood Urea Nitrogen 6 mg/dL (8-24); Bun/Creatinine Ratio 10.1 (12.0-20.0); CO2, Blood 23 mmol/L (21-32); Chloride, Blood 107 mmol/L (98-108); Globulin, Blood 4.3 g/dL (2.2-4.0); Glomerular Filtration Rate 127 (60-); Glucose, Blood 87 mg/dL (70-99); Potassium, Blood 3.5 mmol/L (3.5-5.5); Sodium, Blood 139 mmol/L (136-145); Total Protein, Blood 8.2 g/dL (6.4-8.2)
[2024-11-09] MEDS ORDERED: Ketorolac Tromethamine 15mg Vial IV ONE (23:10)
[2024-11-09] MEDS ORDERED: NS 1,000 ML IV SCH ×2 (23:10→23:25)
[2024-11-09] MEDS ORDERED: Ondansetron HCl 2 MG / ML 2ML Vial IV ONE (23:15)
[2024-11-10 01:35] VITALS: BP 125/68
[2024-11-10] MEDS ORDERED: LevoFLOXacin 500 MG Tab PO ONE (01:40)
[2024-11-10] MEDS ORDERED: LEVOFLOXACIN250 M1 PO (01:43)
== END 2024-11-10 02:01 | disposition home or self-care (01) ==
LOC: ER 19:32
PROVIDERS: Student in an Organized Health Care Education/Training Program
DX: N30.90 Cystitis, unspecified without hematuria (principal); R11.2 Nausea with vomiting, unspecified; Z79.890 Hormone replacement therapy; Z79.899 Other long term (current) drug therapy
CPT/HCPCS: 74177; 80053; 81001; 83690; 84702; 85025; 87086; 96361; 96374-59; 96375; 99284-25; A9270; J1885; J2405; J7030; Q9967